=== PATIENT | male | born 2000 | race Caucasian/White ===

== ENCOUNTER 2021-07-28 03:05 | Emergency (ER) | payer BC ==
[~2021-07-28] VITALS: Ht 188 cm; Wt 120.5 kg
[2021-07-28] MEDS ORDERED: MOTRIN 800800 MG/TAB PO (03:45)
[2021-07-28 04:03] VITALS: BP 135/70; PULSE 86; TEMP 97.8
== END 2021-07-28 04:03 | disposition home or self-care (01) ==
LOC: COL.ER 03:05
DX: M25.561 Pain in right knee (principal); M25.562 Pain in left knee; M25.571 Pain in right ankle and joints of right foot; M25.572 Pain in left ankle and joints of left foot